=== PATIENT | male | born 1995 | race Caucasian/White ===

== ENCOUNTER 2024-02-04 03:23 | Inpatient (IN) | payer MEDICAID ==
[~2024-02-04] VITALS: Ht 167.6 cm; Wt 82.1 kg
[2024-02-04 04:29] LABS: BASOPHILS % 0.1 % (0.0-2.0); EOSINOPHILS % 2.2 % (0.0-5.0); HEMATOCRIT. 41.2 % (42.0-52.0); HEMOGLOBIN. 14.4 g/dL (14.0-18.0); LYMPHOCYTES % 24.7 % (20.0-50.0); MEAN CORPUSCULAR HEMOGLOBIN 30.7 pg (28.0-32.0); MEAN CORPUSCULAR HGB CONC 34.9 g/dL (31.0-37.0); MEAN CORPUSCULAR VOLUME 88.1 fL (80.0-94.0); MEAN PLATELET VOLUME 8.1 fl (7.4-10.4); MONOCYTES % 8.5 % (2.0-8.0); NEUTROPHILS % 64.5 % (40.0-76.0); PLATELET 310 x1000/uL (130-400); RED BLOOD CELL COUNT 4.68 mill/uL (4.7-6.1); RED CELL DISTRIBUTION WIDTH 13.3 % (11.6-14.6); WHITE BLOOD COUNT 11.5 x1000/uL (4.5-11.0)
[2024-02-04 04:30] LABS: CHLORIDE 104 mEq/L (98-107); POTASSIUM 3.5 mEq/L (3.5-5.1); SODIUM 137 mEq/L (136-145)
[2024-02-04] MEDS: SODIUM CHLORIDE 0.9% 1,000 ML IV ONE (04:30)
[2024-02-04 04:31] LABS: CARBON DIOXIDE 23 mEq/L (21-32)
[2024-02-04] MEDS: MORPHINE SULFATE 4 MG/ML INJ (FOR IV/IM USE) IV STA (04:34)
[2024-02-04] MEDS: ONDANSETRON HCL 4MG/2ML INJ IV STA (04:34)
[2024-02-04] MEDS: FAMOTIDINE 20MG/2ML VIAL IV STA (04:34)
[2024-02-04 04:36] LABS: CREATININE 0.8 mg/dL (0.6-1.3); ETHANOL BLOOD 46 mg/dL (<10); GLUCOSE 120 mg/dL (70-105); UREA NITROGEN BLOOD 14 mg/dL (9-23)
[2024-02-04 04:40] LABS: PROTHROMBIN TIME 10.9 sec (9.6-11.0)
[2024-02-04] MEDS ORDERED: GUAIFENESIN 200MG/10ML SUGAR FREE UDC PO PRN (05:45)
[2024-02-04] MEDS ORDERED: DOCUSATE SODIUM 100MG CAPSULE PO PRN (05:45)
[2024-02-04] MEDS ORDERED: IPRATROPIUM/ALBUTEROL 0.5-3(2.5)MG/3ML NEB HHN PRN (05:45)
[2024-02-04] MEDS ORDERED: MAGNESIUM/ALUMINUM HYDROXIDE/SIMETHICONE 30ML UDC PO PRN (05:45)
[2024-02-04] MEDS ORDERED: CLONIDINE 0.1MG TABLET PO PRN (05:45)
[2024-02-04] MEDS ORDERED: DEXTROSE 50% WATER 50ML SYRINGE IV PRN (05:45)
[2024-02-04] MEDS: IOHEXOL-300 100 ML BOTTLE ONE (05:48)
[2024-02-04] MEDS: CHLORDIAZEPOXIDE 25MG CAPSULE PO NR (06:00)
[2024-02-04] MEDS ORDERED: CHLORDIAZEPOXIDE 25MG CAPSULE PO ONE (06:00)
[2024-02-04] MEDS ORDERED: POTASSIUM CHLORIDE 20 MEQ in DEXT 5% WATER 90 ML IV ONE (06:00)
[2024-02-04] MEDS: MORPHINE SULFATE 2 MG/ML INJ (NOT FOR IM USE) IV NR (06:39)
[2024-02-04 06:50] LABS: CREATINE KINASE 105 IU/L (46-171); PHOSPHORUS 2.7 mg/dL (2.5-4.9)
[2024-02-04] MEDS: KCL 20MEQ/100ML PREMIX 100 ML IV NR (07:00)
[2024-02-04 07:18] LABS: TROPONIN I HIGH SENSITIVITY < 4 ng/L (3.0-53)
[2024-02-04] MEDS: MVI, ADULT NO.1 10 ML, FOLIC ACID 1 MG, THIAMINE HCL 100 MG in SODIUM CHLORIDE 0.9% 1,0... IV NR (07:52)
[2024-02-04] MEDS: SODIUM BICARBONATE 4% 2.4MEQ/5ML VIAL IV ONE (07:56)
[2024-02-04] MEDS: ONDANSETRON HCL 4MG/2ML INJ IV PRN (08:01)
[2024-02-04] MEDS: THIAMINE HCL 100MG TABLET PO SCH (09:00)
[2024-02-04] MEDS: FOLIC ACID 1MG TABLET PO SCH (09:00)
[2024-02-04] MEDS ORDERED: SKIN ADHESIVE 0.7 GM EA TOP ONE (09:20)
[2024-02-04] MEDS ORDERED: BUPIVACAINE HCL/PF 0.5% (5MG/ML) 10ML ONE (09:20)
[2024-02-04] MEDS: BLOOD SUGAR DIAGNOSTIC STRIP TEST SCH (09:34)
[2024-02-04] MEDS: PANTOPRAZOLE SODIUM 40 MG/VIAL IV SCH (09:45)
[2024-02-04] MEDS: PIPERACILLIN/TAZO 3.375G/50ML 50 ML IV SCH ×2 (09:46→17:24)
[2024-02-04] MEDS: MORPHINE SULFATE 4 MG/ML INJ (FOR IV/IM USE) IV NR (09:58)
[2024-02-04] MEDS ORDERED: LABETALOL 5MG/ML 4ML INJ IV PRN (11:00)
[2024-02-04] MEDS ORDERED: GLYCOPYRROLATE 0.2 MG/ML 2ML VIAL IV PRN (11:00)
[2024-02-04] MEDS ORDERED: ONDANSETRON HCL 4MG/2ML INJ IV PRN ×2 (11:00→11:45)
[2024-02-04] MEDS ORDERED: HYDRALAZINE 20MG/ML VIAL IV PRN (11:00)
[2024-02-04] MEDS ORDERED: HYDROMORPHONE HCL/PF 1MG/ML INJ IV PRN ×2 (11:00)
[2024-02-04] MEDS ORDERED: NALOXONE HCL 0.4MG/ML VIAL IV PRN (11:45)
[2024-02-04] MEDS: HYDROMORPHONE HCL/PF 1MG/ML INJ IV PRN (12:55)
[2024-02-04 15:00] VITALS: BP 116/85; PULSE 105; RESP 18; TEMP 36.5292
[2024-02-04 16:00] VITALS: BP 120/75; PULSE 101; RESP 20; TEMP 37.00296; O2SAT 96
[2024-02-04] MEDS ORDERED: LORAZEPAM 2MG/ML INJ IV PRN (16:00)
[2024-02-04 16:33] LABS: CREATINE KINASE 92 IU/L (46-171)
[2024-02-04 17:00] LABS: TROPONIN I HIGH SENSITIVITY < 4 ng/L (3.0-53)
[2024-02-04] MEDS: DEXT 5%/0.45% NACL KCL 20MEQ/L 1,000 ML IV SCH (17:25)
[2024-02-04] MEDS: HYDROCODONE/ACETAMINOPHEN 5/325MG TABLET PO PRN ×2 (17:25→22:09)
[2024-02-04 20:00] VITALS: BP 117/71; PULSE 100; RESP 19; TEMP 36.72516; O2SAT 96
[2024-02-05] VITALS: BP 110/71; PULSE 102; RESP 18; TEMP 36.72516; O2SAT 98
[2024-02-05] MEDS: DEXT 5%/0.45% NACL KCL 20MEQ/L 1,000 ML IV SCH (01:08)
[2024-02-05] MEDS: MORPHINE SULFATE 4 MG/ML INJ (FOR IV/IM USE) IV PRN (03:05)
[2024-02-05 04:00] VITALS: BP 119/85; PULSE 93; RESP 18; TEMP 36.44736; O2SAT 98
[2024-02-05 08:14] LABS: CHLORIDE 104 mEq/L (98-107); POTASSIUM 3.9 mEq/L (3.5-5.1); SODIUM 137 mEq/L (136-145)
[2024-02-05 08:15] LABS: BASOPHILS % 0.1 % (0.0-2.0); CALCIUM 9.6 mg/dL (8.7-10.4); CARBON DIOXIDE 26 mEq/L (21-32); HEMATOCRIT. 39.5 % (42.0-52.0); HEMOGLOBIN. 13.6 g/dL (14.0-18.0); LYMPHOCYTES % 12.3 % (20.0-50.0); MEAN CORPUSCULAR HEMOGLOBIN 30.6 pg (28.0-32.0); MEAN CORPUSCULAR HGB CONC 34.3 g/dL (31.0-37.0); MEAN CORPUSCULAR VOLUME 89.3 fL (80.0-94.0); MEAN PLATELET VOLUME 8.2 fl (7.4-10.4); MONOCYTES % 6.7 % (2.0-8.0); NEUTROPHILS % 80.9 % (40.0-76.0); PLATELET 310 x1000/uL (130-400); RED BLOOD CELL COUNT 4.43 mill/uL (4.7-6.1); RED CELL DISTRIBUTION WIDTH 13.2 % (11.6-14.6); WHITE BLOOD COUNT 13.3 x1000/uL (4.5-11.0)
[2024-02-05 08:19] LABS: ALBUMIN 4.6 g/dL (3.2-4.8)
[2024-02-05 08:20] LABS: CREATININE 0.8 mg/dL (0.6-1.3); GLUCOSE 106 mg/dL (70-105); T4 FREE 1.87 ng/dL (0.89-1.76); TRIGLYCERIDE 209 mg/dL (0-150)
[2024-02-05 08:21] LABS: LDL CHOLESTEROL 105 mg/dL (5-100); UREA NITROGEN BLOOD 10 mg/dL (9-23)
[2024-02-05 08:22] LABS: CHOLESTEROL 187 mg/dL (<200); HDL CHOLESTEROL 53 mg/dL (>55)
[2024-02-05 12:00] VITALS: BP 117/74; PULSE 104; RESP 18; TEMP 36.50292; O2SAT 97
[2024-02-05 16:00] VITALS: BP 117/81; PULSE 116; RESP 20; TEMP 36.55848; O2SAT 95
[2024-02-05] MEDS: POTASSIUM CHLORIDE 20 MEQ in DEXT 5%/0.45% NACL 1000ML 1,000 ML IV SCH (19:30)
[2024-02-05 20:00] VITALS: BP 121/87; PULSE 114; RESP 20; TEMP 36.89184; O2SAT 96
[2024-02-05] MEDS: MORPHINE SULFATE 2 MG/ML INJ (NOT FOR IM USE) IV PRN (20:31)
[2024-02-05] MEDS: PIPERACILLIN/TAZO 3.375G/100ML 100 ML IV SCH (23:29)
[2024-02-06 07:10] LABS: HEMATOCRIT 41.6 % (42.0-52.0); HEMOGLOBIN 14.1 g/dL (14.0-18.0); MEAN CORPUSCULAR HEMOGLOBIN 30.6 pg (28.0-32.0); MEAN CORPUSCULAR HGB CONC 33.9 g/dL (31.0-37.0); MEAN CORPUSCULAR VOLUME 90.3 fL (80.0-94.0); PLATELET 329 x1000/uL (130-400); RED BLOOD CELL COUNT 4.61 mill/uL (4.7-6.1); RED CELL DISTRIBUTION WIDTH 13.2 % (11.6-14.6); WHITE BLOOD COUNT 13.6 x1000/uL (4.5-11.0)
[2024-02-06 07:24] LABS: CHLORIDE 99 mEq/L (98-107); POTASSIUM 3.7 mEq/L (3.5-5.1); SODIUM 134 mEq/L (136-145)
[2024-02-06 07:25] LABS: CALCIUM 9.6 mg/dL (8.7-10.4); CARBON DIOXIDE 26 mEq/L (21-32)
[2024-02-06 07:30] LABS: CREATININE 0.9 mg/dL (0.6-1.3); GLUCOSE 96 mg/dL (70-105); UREA NITROGEN BLOOD 10 mg/dL (9-23)
[2024-02-06] MEDS: KETOROLAC 15MG/ML VIAL IV PRN (14:23)
[2024-02-06] MEDS ORDERED: DEXT IV SCH (17:00)
[2024-02-06] MEDS ORDERED: NACL IV SCH (17:00)
[2024-02-06] MEDS ORDERED: KCL IV SCH (17:00)
[2024-02-06] MEDS: DEXT 5%/0.9% NACL KCL 20MEQ/L 1,000 ML IV SCH (19:31)
[2024-02-06 20:00] VITALS: BP 119/86; PULSE 115; RESP 19; TEMP 36.44736; O2SAT 98
[2024-02-07] VITALS: BP 116/79; PULSE 112; RESP 18; TEMP 36.72516; O2SAT 96
[2024-02-07 04:00] VITALS: BP 117/82; PULSE 114; RESP 20; TEMP 36.61404; O2SAT 97
[2024-02-07 07:14] LABS: CHLORIDE 100 mEq/L (98-107); POTASSIUM 3.4 mEq/L (3.5-5.1); SODIUM 132 mEq/L (136-145)
[2024-02-07 07:15] LABS: CALCIUM 9.7 mg/dL (8.7-10.4); CARBON DIOXIDE 22 mEq/L (21-32)
[2024-02-07 07:20] LABS: CREATININE 0.8 mg/dL (0.6-1.3); GLUCOSE 104 mg/dL (70-105); HEMATOCRIT 38.7 % (42.0-52.0); HEMOGLOBIN 13.1 g/dL (14.0-18.0); MEAN CORPUSCULAR HEMOGLOBIN 30.8 pg (28.0-32.0); MEAN CORPUSCULAR VOLUME 90.7 fL (80.0-94.0); PLATELET 343 x1000/uL (130-400); RED BLOOD CELL COUNT 4.26 mill/uL (4.7-6.1); RED CELL DISTRIBUTION WIDTH 12.8 % (11.6-14.6); UREA NITROGEN BLOOD 11 mg/dL (9-23); WHITE BLOOD COUNT 15.2 x1000/uL (4.5-11.0)
[2024-02-07 08:00] VITALS: BP 128/84; PULSE 115; RESP 18; TEMP 37.16964; O2SAT 96
[2024-02-07] MEDS: KCL 20MEQ/100ML PREMIX 100 ML IV SCH (09:30)
[2024-02-07 12:00] VITALS: BP 114/79; PULSE 105; RESP 18; TEMP 36.50292; O2SAT 96
[2024-02-07 12:38] LABS: ALANINE AMINOTRANSFERASE 70 IU/L (10-49); ALBUMIN 4.3 g/dL (3.2-4.8); ASPARTATE AMINOTRANSFERASE 56 IU/L (<34); BILIRUBIN DIRECT 2.7 mg/dL (<=3.0); PROTEIN TOTAL 7.8 g/dL (6.0-8.3)
[2024-02-07 16:00] VITALS: BP 114/80; PULSE 104; RESP 18; TEMP 36.6696; O2SAT 98
[2024-02-07] MEDS: ACETAMINOPHEN 325MG TABLET PO PRN (18:28)
[2024-02-07 20:00] VITALS: BP 116/81; PULSE 112; RESP 17; TEMP 36.6696; O2SAT 96
[2024-02-08] VITALS (8 sets, daily range): BP systolic 115–121; BP diastolic 73–87; PULSE 89–108; RESP 17–20; TEMP 36.114–36.89184; O2SAT 97–100
[2024-02-08 12:39] LABS: HEMATOCRIT 34.6 % (42.0-52.0); MEAN CORPUSCULAR HEMOGLOBIN 31.5 pg (28.0-32.0); MEAN CORPUSCULAR HGB CONC 34.8 g/dL (31.0-37.0); MEAN CORPUSCULAR VOLUME 90.3 fL (80.0-94.0); PLATELET 351 x1000/uL (130-400); RED BLOOD CELL COUNT 3.83 mill/uL (4.7-6.1); RED CELL DISTRIBUTION WIDTH 13.1 % (11.6-14.6); WHITE BLOOD COUNT 10.7 x1000/uL (4.5-11.0)
[2024-02-08 12:56] LABS: CHLORIDE 98 mEq/L (98-107); POTASSIUM 3.8 mEq/L (3.5-5.1); SODIUM 133 mEq/L (136-145)
[2024-02-08 12:57] LABS: CALCIUM 9.4 mg/dL (8.7-10.4); CARBON DIOXIDE 27 mEq/L (21-32)
[2024-02-08] MEDS ORDERED: PROT40 PO (12:58)
[2024-02-08] MEDS ORDERED: ONDA-239 PO (12:58)
[2024-02-08] MEDS ORDERED: THIA100T72 PO (12:58)
[2024-02-08] MEDS ORDERED: TRAM50TA3 MT (12:58)
[2024-02-08] MEDS ORDERED: FOLI-43 PO (12:58)
[2024-02-08 13:02] LABS: CREATININE 0.8 mg/dL (0.6-1.3); GLUCOSE 92 mg/dL (70-105); UREA NITROGEN BLOOD 11 mg/dL (9-23)
[2024-02-08 13:03] LABS: ALANINE AMINOTRANSFERASE 108 IU/L (10-49)
[2024-02-08 13:04] LABS: ALBUMIN 4.1 g/dL (3.2-4.8); ASPARTATE AMINOTRANSFERASE 69 IU/L (<34); BILIRUBIN TOTAL 3.2 mg/dL (0.1-1.0); PROTEIN TOTAL 7.2 g/dL (6.0-8.3)
[2024-02-08 18:58] LABS: CARBON DIOXIDE 24 mEq/L (21-32); CHLORIDE 100 mEq/L (98-107); POTASSIUM 3.5 mEq/L (3.5-5.1); SODIUM 133 mEq/L (136-145)
[2024-02-08 18:59] LABS: CALCIUM 9.1 mg/dL (8.7-10.4)
[2024-02-08 19:03] LABS: CREATININE 0.7 mg/dL (0.6-1.3)
[2024-02-08 19:04] LABS: GLUCOSE 101 mg/dL (70-105); UREA NITROGEN BLOOD 12 mg/dL (9-23)
[2024-02-08 19:05] LABS: ALANINE AMINOTRANSFERASE 111 IU/L (10-49); ASPARTATE AMINOTRANSFERASE 79 IU/L (<34)
[2024-02-08 19:06] LABS: BILIRUBIN TOTAL 2.8 mg/dL (0.1-1.0); PROTEIN TOTAL 6.9 g/dL (6.0-8.3)
[2024-02-08 19:08] LABS: BASOPHILS % 0.1 % (0.0-2.0); EOSINOPHILS % 2.7 % (0.0-5.0); HEMATOCRIT. 34.1 % (42.0-52.0); HEMOGLOBIN. 11.8 g/dL (14.0-18.0); LYMPHOCYTES % 13.2 % (20.0-50.0); MEAN CORPUSCULAR HEMOGLOBIN 30.8 pg (28.0-32.0); MEAN CORPUSCULAR HGB CONC 34.6 g/dL (31.0-37.0); MEAN PLATELET VOLUME 7.8 fl (7.4-10.4); MONOCYTES % 8.7 % (2.0-8.0); NEUTROPHILS % 75.3 % (40.0-76.0); PLATELET 347 x1000/uL (130-400); RED BLOOD CELL COUNT 3.83 mill/uL (4.7-6.1); RED CELL DISTRIBUTION WIDTH 12.7 % (11.6-14.6); WHITE BLOOD COUNT 10.9 x1000/uL (4.5-11.0)
== END 2024-02-08 18:45 | disposition home or self-care (01) | DRG 710 ==
LOC: ER 03:32 → 7EST 04:41
PROVIDERS: ADMIT Hospitalist; ATTEND Hospitalist
PROC: 0DTJ4ZZ Resection of Appendix, Percutaneous Endoscopic Approach (ICD-10-PCS; principal; 2024-02-04)
DX: A41.9 Sepsis, unspecified organism (principal); K56.7 Ileus, unspecified; K35.80 Unspecified acute appendicitis; R17 Unspecified jaundice; F10.129 Alcohol abuse with intoxication, unspecified; F17.210 Nicotine dependence, cigarettes, uncomplicated; E87.6 Hypokalemia; K43.9 Ventral hernia without obstruction or gangrene; Y90.2 Blood alcohol level of 40-59 mg/100 ml; Z91.148 Patient's other noncompliance with medication regimen for other reason; K38.1 Appendicular concretions
CPT/HCPCS: 36415; 71045; 74018; 74176; 74177; 80048; 80053; 80061; 80076; 80320; 82040; 82550; 82962; 83036; 83605; 83735; 84100; 84145; 84439; 84443; 84484; 85025; 85027; 88304; 93005; 97116; 97162; 97530; 99285; J1171; J1885; J2270; J2405; J2470; J2543; J3411; J3480; J3490; J7030; Q9967; G0480